=== PATIENT | female | born 1965 | race Caucasian/White ===

== ENCOUNTER 2021-04-17 17:41 | Emergency (ER) | payer BC, SELFPAY ==
--- NOTE | ~2021-04-17 | CT_ITS ---
EXAMINATION: CT diagnostic chest wo con DATE: 04/17/2021 19:19 INDICATION: sob chest tightness w/ SOB with exertion TECHNIQUE: Computed tomography (CT) of the chest was performed without intravenous contrast. Addition al 3D reconstructions utilizing coronal maximum intensity projection (MIP) were performed. Automated exposure control and iterative reconstruction technique were employed. The dose-length product was 19 0.14 mGy-cm. COMPARISON: None FINDINGS: Small bilateral posterior layering pleural effusions. There are groundglass opacities with dependent predominance in the bilateral lower lobes and to lesser degree the lingula and right middle lobe whic h could represent atelectasis, mild pulmonary edema or less likely pneumonia. Calcified nodule at the lingula along with calcified mediastinal and bilateral hilar lymph nodes nodes consistent with old g ranulomatous disease. Heart size is normal but with moderate-sized pericardial effusion. Thoracic aor ta is normal in caliber. Mild left axillary lymphadenopathy. No pathologically enlarged mediastinal o r hilar lymphadenopathy. Diffuse body wall edema. Peripherally calcified bilateral breast implants. L arge amount of stool at high attenuation material within the visualized colon. Dystrophic calcificati on in the soft tissues surrounding the right T1-T2 facet joint where there is severe osteoarthritis. IMPRESSION: 1. Moderate-sized pericardial effusion. 2. Small bilateral pleural effusions with dependent groundglass opacities in the bilateral lower lobe s and to lesser degree right middle lobe and lingula most likely mild pulmonary edema with differenti al including atelectasis or pneumonia. 3. Diffuse mild body wall edema. 4. Nonspecific mild left axillary lymphadenopathy. Reviewed, dictated and finalized at location [facility] IMPRESSION: 1. Moderate-sized pericardial effusion. 2. Small bilateral pleural effusions with dependent groundglass opacities in th e bilateral lower lobes and to lesser degree right middle lobe and lingula most likely mild pulmonary edema with differential including atelectasis or pneumon ia. 3. Diffuse mild body wall edema. 4. Nonspecific mild left axillary lymphadenopathy.
--- NOTE | 2021-04-17 18:12 | ECG_ITS ---
Measurements Intervals [place] Rate: 90 P: 22 WV: 150 QRS: 12 QRSD: 64 T: 20 QT: 351 QTc: 432 Interpretive Statements SINUS RHYTHM LOW QRS VOLTAGE IN PRECORDIAL LEADS CANNOT RULE OUT SEPTAL INFARCT, AGE INDETERMINATE BORDERLINE ST-T WAVE ABNORMALITY- ANT/INF LEADS BASELINE ARTIFACT- I, II, III, AVR, AVL, AVF, V1-V6 ABNORMAL ECG Electronically Signed On 04-18-2021 7:50:57 SAW SUPERINTENDENT by Jonathon Salmon D.O.
[2021-04-17 18:21] VITALS: BP 155/94; PULSE 95; RESP 20; TEMP 36.6; O2SAT 100
[2021-04-17 18:28] VITALS: O2SAT 99
[2021-04-17 18:56] LABS: Basophils Absolute Auto 0.03 K/mm3 (0.00-0.10); Basophils Percent Auto 0.3 % (0.0-1.0); Eosinophils Absolute Auto 0.25 K/mm3 (0.02-0.50); Eosinophils Percent Auto 2.9 % (1.0-6.0); Hematocrit 25.1 % (35.0-49.0); Hemoglobin 7.7 g/dL (12.0-15.0); Immature Granulocyte Absolute 0.04 K/mm3 (0.00-0.00); Immature Granulocyte Percent A 0.5 % (0.0-0.0); Lymphocytes Absolute Auto 1.45 K/mm3 (1.10-4.50); Lymphocytes Percent Auto 16.8 % (18.0-42.0); Mean Corpuscular HGB Conc 30.7 g/dL (32.0-36.0); Mean Corpuscular Hemoglobin 23.2 pg (27.0-31.0); Mean Corpuscular Volume 75.6 fL (78.0-102.0); Monocytes Absolute Auto 0.71 K/mm3 (0.10-0.90); Monocytes Percent Auto 8.2 % (2.0-11.0); Neutrophils Absolute Auto 6.1 K/mm3 (1.7-7.2); Neutrophils Percent Auto 71.3 % (50.0-70.0); Platelet Count Result 376 K/mm3 (150-420); Red Blood Count 3.32 M/mm3 (4.20-5.40); Red Cell Distribution Width 20.2 % (11.6-14.4); White Blood Count 8.6 K/mm3 (4.8-10.8)
[2021-04-17] MEDS: ALBUTEROL SULFATE (*SP) INHALER 2 PUFF INHALATION (19:01)
[2021-04-17] MEDS: UMECLIDINIUM BROMIDE 62.5 MCG ELLIPTA 1 PUFF INHALATION (19:02)
[2021-04-17 19:13] LABS: Alanine Aminotransferase 58 U/L (14-59); Albumin Level 2.5 g/dL (3.4-5.0); Alkaline Phosphatase 76 U/L (46-116); Anion Gap 10 mmol/L (8-16); Aspartate Amino Transferase 64 U/L (15-37); Bilirubin,Total 0.3 mg/dL (0.00-1.00); Blood Urea Nitrogen 18 mg/dL (7-18); Calcium 7.9 mg/dL (8.5-10.1); Carbon Dioxide 27 mmol/L (21-32); Chloride 98 mmol/L (98-108); Estimated CRCL calculation 45 ml/min; Estimated Glomerular Filt Rate 60; Glucose 83 mg/dL (70-99); Osmolality Calculated 280 mOsm/kg (285-295); Potassium 3.3 mmol/L (3.5-5.1); Sodium 135 mmol/L (136-145); Total Protein 5.9 g/dL (6.4-8.2)
[2021-04-17 19:17] LABS: Ethanol < 3 mg/dL (0-6); Troponin I 284.2 ng/L (0.00-60.4)
[2021-04-17 19:50] LABS: Influenza A QL RT-PCR Negative (Negative); Influenza B QL RT-PCR Negative (Negative); SARS-CoV-2 RNA PCR Negative (Negative)
--- NOTE | 2021-04-17 20:45 | PC.NURSE ---
RN went into patient's room when call light was pushed. Patient appears to be frustrated and requesting to leave. RN sat down and spoke to patient in regards update on plan of care, i.e. additional blood draw, IV initiation, medications. Patient states that she does not want additional blood work, IV, or any medications. Patient states that she is requesting to sign out AMA and go home. RN educated patient on risks of leaving AMA and not staying for additional treatment. RN educated patient on troponin enzyme and what it indicates in regards to your heart. patient verbalized understanding and states dying would not be the worst thing in the world . Patient states that she would like to go home to eat and get a good nights rest and then follow up with primary care doctor in the morning. Patient's mother in room at time of discussion. Patient denies additional questions or concerns at this time. RN updated MD on patient wanting to leave.
--- NOTE | 2021-04-17 20:55 | PC.NURSE ---
MD in room at this time having discussion with patient and mother in regards to patient wanting to sign out AMA.
--- NOTE | 2021-04-17 20:55 | PC.NURSE ---
Patient took all cardiac leads, BP cuff, and SPO2 monitor off at this time
--- NOTE | 2021-04-17 20:58 | ED.SOB ---
HPI - SOB/Dyspnea General Chief Complaint: Shortness of Breath/Dyspnea Stated Complaint: AMB Time Seen by Provider: 04/17/21 17:45 Source: patient, family and RN notes reviewed Mode of arrival: ambulatory Limitations: no limitations History of Present Illness MD elicited complaint: shortness of breath, cough and chest pain Pertinent past history: COPD Onset (ago): day(s) (2) Context: occurred during exertion Timing: constant Severity: moderate Exacerbating factors: lying flat and exertion Relieving factors: rest and bronchodilators Known history of: COPD Associated symptoms: chest pain, cough and wheezing Treatment prior to arrival: none Related Data Home Medications Medication Instructions Recorded Confirmed Probiotic 3,000 mmu cells PO DAILY 04/17/21 04/18/21 amlodipine 2.5 mg PO DAILY 04/17/21 04/18/21 aspirin-dipyridamole 1 cap PO DAILY 04/17/21 04/18/21 baclofen 10 mg PO DAILY 04/17/21 04/18/21 clonazepam 0.5 mg PO DAILY 04/17/21 04/18/21 coQ10 (ubiquinol) 100 mg PO DAILY 04/17/21 04/18/21 famotidine [Pepcid] 20 mg PO BID 04/17/21 04/18/21 pantoprazole 20 mg PO QAM 04/17/21 04/18/21 psyllium husk [Metamucil] 0.4 g PO HS 04/17/21 04/18/21 sildenafil (pulm.hypertension) 20 mg PO TID 04/17/21 04/18/21 Allergies Allergy/AdvReac Type Severity Reaction Status Date / Time methotrexate Allergy Unknown Verified 04/17/21 18:36 Review of Systems Review of Systems: All systems reviewed & are unremarkable except as noted in HPI and below PMFSH Past Medical History Medical History Anemia Hypokalemia Pulmonary hypertension Scleroderma Surgical History Surgical History H/O breast implant Family History Family History Father Smoker Mother Smoker Social History Social History Smoking status: Former smoker Tobacco type: cigarettes Second hand tobacco smoke exposure: No Alcohol intake: never Substance use type: marijuana Last use: 04/15/21 Spiritual care concerns: No Exam Const: General: alert and ill appearing Nutritional Appearance: thin Orientation/consciousness: patient oriented x3 HENMT: Head: normal to inspection Ears: external ears normal and TM's normal bilaterally General nose exam: Normal external nose present and Normal nares present Mouth: Yes moist mucous membranes Eyes: Conjunctivae: conjunctivae normal Pupils: Equal, round and reactive pupils present EOM: EOMs intact bilaterally Neck: Neck: normal visual inspection Chest: Chest palpation & inspection: normal inspection of the chest Resp: Effort & Inspection: uses accessory muscles Auscultation: crackles, rales, rhonchi and wheezes Cardio: Rate: regular rate Rhythm: regular rhythm GI: GI Palp: Yes Soft to palpation and No Tenderness to palpation present (GI) Auscultation: normal bowel sounds : General: Yes bladder normal to palpation and Yes no CVA tenderness Back/Spine/Pelvis: Back: no CVA tenderness Skin: General skin exam: normal color Neuro: General: patient oriented x3, moves all extremities, no meningeal signs, no focal motor deficits and CN's II-XI intact bilaterally Extrem: General: normal to inspection and no pedal edema Psych: Mental Status: mental status grossly normal Affect: normal affect Thought content: Yes Normal thought content present Course Course Emergency Course: Pt was mildly improved in the ED Reevaluation(s) Reevaluation #1: pt had less chest pain and SOB Date: 04/17/21 Time: 18:43 Vital Signs Vital signs: Vital Signs Temperature 36.6 C 04/17/21 18:21 Pulse Rate 95 04/17/21 18:21 Respiratory Rate 20 04/17/21 18:21 Blood Pressure 155/94 H 04/17/21 18:21 Pulse Oximetry 100 04/17/21 18:21 Temperature 36.6 C 04/17/21 18:21 Pulse
== END 2021-04-17 21:09 | disposition left against medical advice (07) ==
PROVIDERS: Emergency Provider Emergency Medicine; PCP Internal Medicine
DX: J18.8 Other pneumonia, unspecified organism (principal); I21.4 Non-ST elevation (NSTEMI) myocardial infarction; J81.1 Chronic pulmonary edema; J44.9 Chronic obstructive pulmonary disease, unspecified; Z79.899 Other long term (current) drug therapy; Z87.891 Personal history of nicotine dependence; Z20.822 Contact with and (suspected) exposure to COVID-19
CPT/HCPCS: 36415; 36600; 71250; 80053; 80307; 82805; 84484; 85025; 87081; 87502; 87880; 93005; 99283; 99284; A9270; C9803; U0003; U0005

== ENCOUNTER 2021-04-17 23:58 | Inpatient (IN) | payer BC, SELFPAY ==
[2021-04-18] VITALS (13 sets, daily range): BP systolic 108–166; BP diastolic 78–95; PULSE 74–99; RESP 16–20; TEMP 36.4–37.4; O2SAT 91–100; BMI 18.3
--- NOTE | 2021-04-18 00:05 | ECG_ITS ---
Measurements Intervals [place] Rate: 93 P: 24 MT: 155 QRS: 24 QRSD: 70 T: 16 QT: 346 QTc: 431 Interpretive Statements SINUS RHYTHM FREQUENT VENTRICULAR PREMATURE COMPLEXES BORDERLINE R WAVE PROGRESSION, ANTERIOR LEADS BORDERLINE T WAVE ABNORMALITY- ANTERIOR LEADS ABNORMAL ECG Electronically Signed On 04-18-2021 6:21:08 WIRELESS ARCHITECT by Jonathon Salmon D.O.
[2021-04-18 00:35] LABS: Basophils Absolute Auto 0.03 K/mm3 (0.00-0.10); Basophils Percent Auto 0.4 % (0.0-1.0); Eosinophils Absolute Auto 0.24 K/mm3 (0.02-0.50); Eosinophils Percent Auto 3.1 % (1.0-6.0); Hematocrit 25.3 % (35.0-49.0); Hemoglobin 7.7 g/dL (12.0-15.0); Immature Granulocyte Absolute 0.02 K/mm3 (0.00-0.00); Immature Granulocyte Percent A 0.3 % (0.0-0.0); Lymphocytes Absolute Auto 1.47 K/mm3 (1.10-4.50); Lymphocytes Percent Auto 18.8 % (18.0-42.0); Mean Corpuscular HGB Conc 30.4 g/dL (32.0-36.0); Mean Corpuscular Hemoglobin 23.1 pg (27.0-31.0); Mean Platelet Volume 9.3 fl (9.2-11.8); Monocytes Absolute Auto 0.63 K/mm3 (0.10-0.90); Neutrophils Absolute Auto 5.4 K/mm3 (1.7-7.2); Neutrophils Percent Auto 69.4 % (50.0-70.0); Platelet Count Result 351 K/mm3 (150-420); Red Blood Count 3.33 M/mm3 (4.20-5.40); Red Cell Distribution Width 20.5 % (11.6-14.4); White Blood Count 7.8 K/mm3 (4.8-10.8)
[2021-04-18 00:53] LABS: Alanine Aminotransferase 60 U/L (14-59); Albumin Level 2.5 g/dL (3.4-5.0); Alkaline Phosphatase 71 U/L (46-116); Anion Gap 8 mmol/L (8-16); Aspartate Amino Transferase 60 U/L (15-37); Bilirubin,Total 0.3 mg/dL (0.00-1.00); Blood Urea Nitrogen 17 mg/dL (7-18); Calcium 7.8 mg/dL (8.5-10.1); Carbon Dioxide 28 mmol/L (21-32); Chloride 100 mmol/L (98-108); Estimated CRCL calculation 45 ml/min; Estimated Glomerular Filt Rate 60; Glucose 83 mg/dL (70-99); Osmolality Calculated 282 mOsm/kg (285-295); Potassium 3.3 mmol/L (3.5-5.1); Sodium 136 mmol/L (136-145); Total Protein 5.8 g/dL (6.4-8.2)
[2021-04-18 00:54] LABS: Troponin I 284.2 ng/L (0.00-60.4)
[2021-04-18] MEDS: ALBUTEROL SULFATE (*SP) INHALER 2 PUFF INHALATION (01:10)
--- NOTE | 2021-04-18 02:55 | PC.NURSE ---
Pt to the floor by wheelchair; Pt was admitted with SOB and chest pain. Troponin was 285.6. Pt is alert and oriented x4 and requires assist with standing or using the bathroom.
[2021-04-18] MEDS: IBUPROFEN 600 MG TABLET PO (04:45)
[2021-04-18] MEDS: BACLOFEN 10 MG TABLET PO ×2 (04:49→08:59)
--- NOTE | 2021-04-18 05:00 | PC.NURSE ---
Pt given morphine 2 mg IVP to relieve c/o back, hands, feet and knee pain.
[2021-04-18] MEDS: MORPHINE SULFATE (*CRX) 2 MG/ML INJ IV PUSH ×2 (05:01→20:49)
--- NOTE | 2021-04-18 06:30 | PC.NURSE ---
Pt states that the morphine has relieved her pain and now rates her pain as a 3 on a 1-10 pain scale.
[2021-04-18] MEDS: traMADol HCL (*CRX) 50 MG TABLET PO ×2 (07:47→19:25)
--- NOTE | 2021-04-18 07:58 | PC.NURSE ---
Pt given baclofan 10 mg and ibuprofen 600 mg for c/o pain.
[2021-04-18] MEDS: UMECLIDINIUM BROMIDE 62.5 MCG ELLIPTA 1 PUFF INHALATION (08:55)
[2021-04-18] MEDS: SACCHAROMYCES BOULARDII 250 MG CAPSULE PO ×2 (08:56→18:07)
[2021-04-18] MEDS: SILDENAFIL CITRATE 20 MG TABLET PO ×3 (08:56→17:06)
[2021-04-18] MEDS: predniSONE 2.5 MG TABLET 7.5 MG PO (08:56)
[2021-04-18] MEDS: amLODIPine BESYLATE 2.5 MG TABLET PO (08:56)
[2021-04-18] MEDS: clonazePAM (*CRX) 0.5 MG TABLET PO (08:57)
[2021-04-18] MEDS: CALCIUM CARBONATE (TUMS) 500 MG (200 MG ELEMENTAL) PO ×2 (08:57→17:07)
[2021-04-18] MEDS: PANTOPRAZOLE SOD SESQUIHYDRATE 20 MG TAB PO (08:58)
[2021-04-18] MEDS: POTASSIUM CHLORIDE 20 MEQ TABLET PO (08:58)
[2021-04-18] MEDS: FAMOTIDINE 20 MG TABLET PO ×2 (08:58→17:07)
[2021-04-18] MEDS: ENOXAPARIN 60 MG/0.6 ML SYRINGE 50 MG SUB-Q (09:05)
[2021-04-18 09:18] LABS: Troponin I 318.4 ng/L (0.00-60.4)
--- NOTE | 2021-04-18 13:00 | ECHO_ITS ---
Patient Info Name: Sherin Parrish Age: 56 years : 1965 Gender: Female Ht: 65 in Wt: 110 lbs BSA: 1.50 m2 HR: 88 bpm BP: 146 / 86 mmHg Technical Quality: Good Exam Date: 04/18/2021 1:52 PM Exam Location: [facility] Patient Status: Inpatient Admit Date: 04/18/2021 Staff Ordering Physician: Jaime Newberry Space Engineer: Erika Samson Attending Provider: Joanne Molina MD Referring Physician: Coni SALCEDO; Exam Type: CA echo doppler color flow Study Info Indications R07.9 - Chest pain, unspecified Complete two-dimensional, color flow and Doppler transthoracic echocardiogram is performed. Summary 1. Complete two-dimensional, color flow and Doppler transthoracic echocardiogram is performed. 2. Left ventricular chamber dimension is normal. 3. Left ventricular systolic function is normal, estimated at 60-65%. 4. The left ventricular diastolic function is grade I diastolic dysfunction. 5. E/e' 11 is mildly elevated. 6. Left atrial chamber dimension is moderately enlarged. 7. There is trace aortic valve regurgitation. 8. No pulmonary hypertension, estimated pulmonary arterial systolic pressure is 31 mmHg. 9. There is large circumferential pericardial effusion. Respiratory variation on mitral and tricuspid valve flow is not assessed. Based on no diastolic collapse of right atrium or right ventricle, there is no immediate cardiac tamponade. Left Ventricle E/e' 11 is mildly elevated. Left ventricular chamber dimension is normal. Left ventricular systolic function is normal, estimated at 60-65%. The left ventricular diastolic function is grade I diastolic dysfunction. Right Ventricle Right ventricular systolic function is normal and with normal TAPSE 1.9 cm.. Right ventricular chamber dimension is normal. Left Atria Left atrial chamber dimension is moderately enlarged. Right Atria Right atrial chamber dimension is normal. Aortic Valve The aortic valve is trileaflet. There is no aortic valve stenosis. There is trace aortic valve regurgitation. Pulmonic Valve There is no pulmonic regurgitation. Mitral Valve There is no mitral valve stenosis. There is no mitral valve regurgitation. Tricuspid Valve There is no tricuspid valve regurgitation. No pulmonary hypertension, estimated pulmonary arterial systolic pressure is 31 mmHg. Pericardium/Pleural There is large circumferential pericardial effusion. Respiratory variation on mitral and tricuspid valve flow is not assessed. Based on no diastolic collapse of right atrium or right ventricle, there is no immediate cardiac tamponade. Inferior Vena Cava Normal inferior vena cava with >50% collapse upon inspiration consistent with normal right atrial pressure, 5 mmHg. Aorta The aortic root size at the sinus of Valsalva is normal. Left Ventricular Outflow Tract Name Value Normal LVOT 2D LVOT Diameter 1.8 cm LVOT Doppler LVOT Peak Velocity 118 cm/s LVOT Peak Gradient 6 mmHg LVOT Mean Gradient 4 mmHg LVOT VTI 23 cm
--- NOTE | 2021-04-18 13:54 | PM.IMHP ---
H&P: HPI History of Present Illness Date/Time: 04/18/21 13:54 Sherin Parrish is a 56 year old female who initially came to the ER with CP and SOB but left AMA. She returned for the same and agreed to be admitted as an inpatient for further workup treatment. Pt states that her SOB/CP was going on for about 2-3 weeks prior to initially coming to the ER then AMA. She did return later that evening and was admitted for her Scleroderma related SOB/CP. Pt states she was living in [place] when she started noticing a decrease in function. She then moved back in with her parents in [place]. She states that they are heavy smokers of cigarettes and cigars. Pt states that this environment is stressful. She is going to have a better living arrangement in the first week of April in a home on her folks property. She also states that her skin around her breast implants has become worse to the point her breast implants are causing pain in her chest wall to the point she is very tender and not even able to go to have a massage as she is unable to lay prone on the table. Today the Pt states that her CP and SOB has improved. Her pain was a 6/10 and now better than this. The pain stayed mid sternum and did not radiate anywhere and was intermittent. <TRUONG Soto - Last Filed: 04/18/21 15:34> Chief Complaint: SOB/CP <TRUONG Soto - Last Filed: 04/18/21 15:34> Review of Systems Review of Systems: All systems reviewed & are unremarkable except as noted in HPI and below <TRUONG Soto - Last Filed: 04/18/21 15:34> [facility] Past Medical History Medical History: Medical History Anemia Hypokalemia Scleroderma <TRUONG Soto - Last Filed: 04/18/21 15:34> Surgical History Surgical History: Surgical History (Updated 04/18/21 @ 14:52 by TRUONG Soto) H/O breast implant <TRUONG Soto - Last Filed: 04/18/21 15:34> Family History Family History: Family History (Updated 04/18/21 @ 14:51 by TRUONG Soto) Father Smoker Mother Smoker <TRUONG Soto - Last Filed: 04/18/21 15:34> Social History Social History: Social History Smoking status: Former smoker Tobacco type: cigarettes Second hand tobacco smoke exposure: No Alcohol intake: never Substance use type: marijuana Last use: 04/15/21 Spiritual care concerns: No <TRUONG Soto - Last Filed: 04/18/21 15:34> Meds Home Medications and Allergies Home medications: Home Medications Medication Instructions Recorded Confirmed Type albuterol sulfate 2 puff INHALATION QID #8.5 g 04/17/21 04/18/21 Rx amlodipine 2.5 mg PO DAILY 04/17/21 04/18/21 History aspirin-dipyridamole [Aggrenox] 1 cap PO DAILY 04/17/21 04/18/21 History azithromycin [Zithromax TRI-JUAN] 500 mg PO DAILY 5 Days #5 tablet 04/17/21 04/18/21 Rx baclofen 10 mg PO DAILY 04/17/21 04/18/21 History calcium carbonate [Tums] 500 mg PO BID #30 tablet 04/17/21 04/18/21 Rx cephalexin [Keflex] 750 mg PO Q12H #14 cap 04/17/21 04/18/21 Rx clonazepam 0.5 mg PO DAILY 04/17/21 04/18/21 History coQ10 (ubiquinol) 100 mg PO DAILY 04/17/21 04/18/21 History famotidine [Pepcid] 20 mg PO BID 04/17/21 04/18/21 History hydrocodone-acetaminophen 1 tablet PO Q6H PRN 04/17/21 04/18/21 History lactobacillus combination no.4 3,000 mmu cells PO DAILY 04/17/21 04/18/21 History [Probiotic] pantoprazole 20 mg PO QAM 04/17/21 04/18/21 History potassium chloride 20 meq PO DAILY #20 tablet 04/17/21 04/18/21 Rx prednisone 7.5 mg PO DAILY 04/17/21 04/18/21 History psyllium husk [Metamucil] 0.4 g PO HS 04/17/21 04/18/21 History sildenafil (pulm.hypertension) 20 mg PO TID 04/17/21 04/18/21 History tiotropium bromide [Spiriva 2 puff INHALATION DAILY #4 g 04/17/21 04/18/21 Rx Respimat] tramadol 12.5 mg PO QID PRN 04/17/2104/18
[2021-04-18] MEDS: ASPIRIN 81 MG ENTERIC TABLET PO (14:05)
[2021-04-18 16:56] LABS: Ferritin 14 ng/mL (8-252); Iron 13 ug/dL (50-170); Percent Iron Saturation 4 % (12-57)
[2021-04-18 16:59] LABS: Free T4 Free Thyroxine Reflex 1.14 ng/dL (0.76-1.46); Thyroid Stimulating Hormone Reflex 10.64 u/IU/mL (0.36-3.74)
--- NOTE | 2021-04-18 19:47 | PC.NURSE ---
Pt ambulated from the chair and down the hallway with standby assist, walker, and gait belt. Pt performed ambulation well and is in pleasant mood. Pt was then brought back to bed after ambulation and has her call light within reach.
[2021-04-19] VITALS (9 sets, daily range): BP systolic 138–167; BP diastolic 79–99; PULSE 83–104; RESP 14–18; TEMP 36.4–37.4; O2SAT 94–98
[2021-04-19] MEDS: MORPHINE SULFATE (*CRX) 2 MG/ML INJ IV PUSH ×3 (02:43→18:21)
[2021-04-19] MEDS: traMADol HCL (*CRX) 50 MG TABLET PO ×2 (03:28→21:15)
[2021-04-19] MEDS: SILDENAFIL CITRATE 20 MG TABLET PO ×3 (08:52→18:06)
[2021-04-19] MEDS: SACCHAROMYCES BOULARDII 250 MG CAPSULE PO ×2 (08:53→18:05)
[2021-04-19] MEDS: UMECLIDINIUM BROMIDE 62.5 MCG ELLIPTA 1 PUFF INHALATION (08:53)
[2021-04-19] MEDS: PANTOPRAZOLE SOD SESQUIHYDRATE 20 MG TAB PO (08:53)
[2021-04-19] MEDS: FAMOTIDINE 20 MG TABLET PO ×2 (08:54→18:05)
[2021-04-19] MEDS: CALCIUM CARBONATE (TUMS) 500 MG (200 MG ELEMENTAL) PO ×2 (08:54→18:05)
[2021-04-19] MEDS: clonazePAM (*CRX) 0.5 MG TABLET PO (08:54)
[2021-04-19] MEDS: BACLOFEN 10 MG TABLET PO (08:54)
[2021-04-19] MEDS: ASPIRIN 81 MG ENTERIC TABLET PO (08:54)
[2021-04-19] MEDS: lisinopriL 5 MG TABLET PO (08:54)
[2021-04-19] MEDS: predniSONE 10 MG TABLET PO (08:54)
[2021-04-19] MEDS: POTASSIUM CHLORIDE 20 MEQ TABLET PO (08:54)
[2021-04-19] MEDS: amLODIPine BESYLATE 2.5 MG TABLET PO (08:55)
[2021-04-19] MEDS: BENZOCAINE/MENTHOL (*BKC) LOZENGE 1 LOZENGE PO (09:13)
[2021-04-19 10:40] LABS: Hematocrit 25.1 % (35.0-49.0); Hemoglobin 7.7 g/dL (12.0-15.0); Mean Corpuscular HGB Conc 30.7 g/dL (32.0-36.0); Mean Corpuscular Volume 74.9 fL (78.0-102.0); Mean Platelet Volume 9.4 fl (9.2-11.8); Platelet Count Result 362 K/mm3 (150-420); Red Blood Count 3.35 M/mm3 (4.20-5.40); White Blood Count 8.9 K/mm3 (4.8-10.8)
[2021-04-19 10:58] LABS: Alanine Aminotransferase 52 U/L (14-59); Albumin Level 2.5 g/dL (3.4-5.0); Alkaline Phosphatase 65 U/L (46-116); Anion Gap 6 mmol/L (8-16); Aspartate Amino Transferase 49 U/L (15-37); Bilirubin,Total 0.4 mg/dL (0.00-1.00); Blood Urea Nitrogen 14 mg/dL (7-18); Calcium 8.2 mg/dL (8.5-10.1); Carbon Dioxide 29 mmol/L (21-32); Chloride 101 mmol/L (98-108); Estimated CRCL calculation 52 ml/min; Estimated Glomerular Filt Rate > 60; Glucose 81 mg/dL (70-99); Osmolality Calculated 281 mOsm/kg (285-295); Potassium 3.6 mmol/L (3.5-5.1); Sodium 136 mmol/L (136-145); Total Protein 6.1 g/dL (6.4-8.2)
[2021-04-19] MEDS: FUROSEMIDE INJ 40 MG/4 ML VIAL IV PUSH ×2 (11:04→18:05)
[2021-04-19 11:55] LABS: Troponin I 481.2 ng/L (0.00-60.4)
[2021-04-19] MEDS: FERROUS SULFATE 324 MG TABLET PO (13:06)
--- NOTE | 2021-04-19 14:12 | PM.IMPN ---
Progress Note: A&P Assessment and Plan (1) NSTEMI (non-ST elevated myocardial infarction): Code(s): I21.4 - Non-ST elevation (NSTEMI) myocardial infarction <TRUONG Soto - Last Filed: 04/19/21 14:39> Status: Acute <Jaime ThomasTRUONG Monet - Last Filed: 04/19/21 14:39> Assessment and Plan: Attempts were made in the ER to transfer this Pt to a higher level of care given her Scleroderma, NSTEMI. There is reported no rooms available. CP has all but resolved with intermittent short periods of CP. Pt does not complain of SOB at this time. Telemetry shows SN with occasional PVCs. Will attempt again to have this Pt transferred for a cardiac cath at a higher level of care facility. 04/19/2021 Troponin increased to 481.2, Pt is accepted at [facility] however she is on a wait list, she was not placed on a wait list at [facility] because she is not and established patient at any of their facilities, [facility] is to call back to get a report for potential acceptance. Pt CP has improved and now has CP with deep inspiration only. Echocardiogram: Summary 1. Complete two-dimensional, color flow and Doppler transthoracic echocardiogram is performed. 2. Left ventricular chamber dimension is normal. 3. Left ventricular systolic function is normal, estimated at 60-65%. 4. The left ventricular diastolic function is grade I diastolic dysfunction. 5. E/e' 11 is mildly elevated. 6. Left atrial chamber dimension is moderately enlarged. 7. There is trace aortic valve regurgitation. 8. No pulmonary hypertension, estimated pulmonary arterial systolic pressure is 31 mmHg. 9. There is large circumferential pericardial effusion. Respiratory variation on mitral and tricuspid valve flow is not assessed. Based on no diastolic collapse of right atrium or right ventricle, there is no immediate cardiac tamponade. <TRUONG Soto - Last Filed: 04/19/21 14:39> (2) Shortness of breath: Code(s): R06.02 - Shortness of breath <TRUONG Soto - Last Filed: 04/19/21 14:39> Status: Acute <TRUONG Soto - Last Filed: 04/19/21 14:39> Assessment and Plan: Chart states she is on 2 L NC, she is without NC when seen in her room with SpO2 of mid upper 90s, no complaints of SOB at this time. Rhonchi throughout the posterior without productive cough 04/19/2021 Pt states her breathing is fine and she is no longer having SOB <Jaime Newberry APN-C - Last Filed: 04/19/21 14:39> (3) Scleroderma: Code(s): M34.9 - Systemic sclerosis, unspecified <Jaime Newberry APN-C - Last Filed: 04/19/21 14:39> Status: Acute <Jaime Newberry APN-C - Last Filed: 04/19/21 14:39> Assessment and Plan: Likely cause for her SOB/CP, increased steroids to 10 mg, Pt is currently on Sildenafil for pulmonary hypertension, initial diagnosis was , she did have Stem Cell transplant in 2018 and states this did well for her. 04/19/2021 continue with transfer to higher level of care pending. <Jaime Newberry APN-C - Last Filed: 04/19/21 14:39> (4) Anemia: Code(s): D64.9 - Anemia, unspecified <Jaime Newberry APN-C - Last Filed: 04/19/21 14:39> Status: Acute <Jaime Newberry APN-C - Last Filed: 04/19/21 14:39> Assessment and Plan: Will run lab Anemia lab work up, MCV is a little low at 76, Pt states she first was told about anemia abotu 2 months ago, H/H 7.7/25.3 will monitor and transfuse when below 7 Hgb. 04/19/2021 H/H 7.7/25.1 stable at this time, Ferrous Sulfate started BID <Jaime Newberry APN-C - Last Filed: 04/19/21 14:39> (5) Hypokalemia: Code(s): E87.6 - Hypokalemia <Jaime Newberry APN-C - Last Filed: 04/19/21 14:39> Status: Acute <Jaime Newberry APN-C - Last Filed: 04/19/21 14:39> Assessment and Plan: K 3.3 and given supplements 04/19/2021 K 3.6 today <TRUONG Soto - [place]
--- NOTE | 2021-04-19 17:57 | PC.NURSE ---
Called transfer center at [facility]. Spoke with Lovely who stated we are still on list awaiting a bed.
--- NOTE | 2021-04-19 21:50 | PC.NURSE ---
pt expresses that she would like to go home tomorrow, will pass along to night nurse to let methods engineer know in the morning
[2021-04-20] VITALS (7 sets, daily range): BP systolic 135–159; BP diastolic 75–87; PULSE 64–115; RESP 14–20; TEMP 36.5–37.1; O2SAT 92–98
[2021-04-20] MEDS: MORPHINE SULFATE (*CRX) 2 MG/ML INJ IV PUSH ×2 (03:11→09:59)
[2021-04-20 05:17] LABS: Hematocrit 25.9 % (35.0-49.0); Hemoglobin 7.8 g/dL (12.0-15.0); Mean Corpuscular HGB Conc 30.1 g/dL (32.0-36.0); Mean Corpuscular Hemoglobin 22.5 pg (27.0-31.0); Mean Corpuscular Volume 74.6 fL (78.0-102.0); Mean Platelet Volume 9.1 fl (9.2-11.8); Platelet Count Result 399 K/mm3 (150-420); Red Blood Count 3.47 M/mm3 (4.20-5.40); Red Cell Distribution Width 19.9 % (11.6-14.4); White Blood Count 9.2 K/mm3 (4.8-10.8)
[2021-04-20] MEDS: traMADol HCL (*CRX) 50 MG TABLET PO ×3 (05:20→21:18)
[2021-04-20 05:38] LABS: Alanine Aminotransferase 53 U/L (14-59); Albumin Level 2.5 g/dL (3.4-5.0); Alkaline Phosphatase 61 U/L (46-116); Anion Gap 8 mmol/L (8-16); Aspartate Amino Transferase 48 U/L (15-37); Bilirubin,Total 0.4 mg/dL (0.00-1.00); Blood Urea Nitrogen 14 mg/dL (7-18); Calcium 8.4 mg/dL (8.5-10.1); Carbon Dioxide 30 mmol/L (21-32); Chloride 99 mmol/L (98-108); Estimated CRCL calculation 48 ml/min; Estimated Glomerular Filt Rate > 60; Glucose 81 mg/dL (70-99); Osmolality Calculated 283 mOsm/kg (285-295); Potassium 3.2 mmol/L (3.5-5.1); Sodium 137 mmol/L (136-145); Total Protein 6.1 g/dL (6.4-8.2)
[2021-04-20 05:40] LABS: Troponin I 258.6 ng/L (0.00-60.4)
--- NOTE | 2021-04-20 06:03 | PC.NURSE ---
Patient upset and angry. Verbally abusive with staff. Angry because her original nurse was unable to care for her due to emergency with another patient. Stated she wanted to know what was going on and why she couldn't have her nurse. stated she was going to leave facility today.
--- NOTE | 2021-04-20 06:10 | PC.NURSE ---
Lab called to report critical troponin of 258.6; No new orders at this time.
[2021-04-20] MEDS: ONDANSETRON INJ 4 MG/2 ML VIAL IV PUSH (07:58)
[2021-04-20] MEDS: UMECLIDINIUM BROMIDE 62.5 MCG ELLIPTA 1 PUFF INHALATION (09:53)
[2021-04-20] MEDS: SILDENAFIL CITRATE 20 MG TABLET PO ×3 (09:54→17:35)
[2021-04-20] MEDS: SACCHAROMYCES BOULARDII 250 MG CAPSULE PO ×2 (09:54→17:36)
[2021-04-20] MEDS: ENOXAPARIN 60 MG/0.6 ML SYRINGE 50 MG SUB-Q (09:54)
[2021-04-20] MEDS: POTASSIUM CHLORIDE 20 MEQ TABLET 40 MEQ PO (09:55)
[2021-04-20] MEDS: PANTOPRAZOLE SOD SESQUIHYDRATE 20 MG TAB PO (09:55)
[2021-04-20] MEDS: clonazePAM (*CRX) 0.5 MG TABLET PO (09:55)
[2021-04-20] MEDS: ASPIRIN 81 MG ENTERIC TABLET PO (09:55)
[2021-04-20] MEDS: CALCIUM CARBONATE (TUMS) 500 MG (200 MG ELEMENTAL) PO ×2 (09:55→17:35)
[2021-04-20] MEDS: BACLOFEN 10 MG TABLET PO (09:56)
[2021-04-20] MEDS: lisinopriL 5 MG TABLET PO (09:57)
[2021-04-20] MEDS: predniSONE 10 MG TABLET PO (09:57)
[2021-04-20] MEDS: FERROUS SULFATE 324 MG TABLET PO ×2 (09:57→17:35)
[2021-04-20] MEDS: FAMOTIDINE 20 MG TABLET PO ×2 (09:57→17:35)
[2021-04-20] MEDS: amLODIPine BESYLATE 2.5 MG TABLET PO (09:57)
[2021-04-20] MEDS: POTASSIUM CHLORIDE 20 MEQ TABLET PO (10:40)
[2021-04-20] MEDS: FUROSEMIDE INJ 40 MG/4 ML VIAL IV PUSH ×2 (10:41→17:35)
[2021-04-20 12:48] LABS: Transferrin 241 mg/dL (188-341)
--- NOTE | 2021-04-20 15:29 | P.PNIM_ITS ---
Progress Note: A&P Assessment and Plan (1) NSTEMI (non-ST elevated myocardial infarction): Code(s): I21.4 - Non-ST elevation (NSTEMI) myocardial infarction Status: Acute Assessment and Plan: Attempts were made in the ER to transfer this Pt to a higher level of care given her Scleroderma, NSTEMI. There is reported no rooms available. CP has all but resolved with intermittent short periods of CP. Pt does not complain of SOB at this time. Telemetry shows SN with occasional PVCs. Will attempt again to have this Pt transferred for a cardiac cath at a higher level of care facility. 04/19/2021 Troponin increased to 481.2, Pt is accepted at [facility] however she is on a wait list, she was not placed on a wait list at [facility] because she is not and established patient at any of their facilities, [facility] is to call back to get a report for potential acceptance. Pt CP has improved and now has CP with deep inspiration only. Echocardiogram: Summary 1. Complete two-dimensional, color flow and Doppler transthoracic echocardiogram is performed. 2. Left ventricular chamber dimension is normal. 3. Left ventricular systolic function is normal, estimated at 60-65%. 4. The left ventricular diastolic function is grade I diastolic dysfunction. 5. E/e' 11 is mildly elevated. 6. Left atrial chamber dimension is moderately enlarged. 7. There is trace aortic valve regurgitation. 8. No pulmonary hypertension, estimated pulmonary arterial systolic pressure is 31 mmHg. 9. There is large circumferential pericardial effusion. Respiratory variation on mitral and tricuspid valve flow is not assessed. Based on no diastolic collapse of right atrium or right ventricle, there is no immediate cardiac tamponade. 04/20/2021 No chest pain today even with deep inspiration, sill waiting for a bed to be available, Troponin decreased today (2) Shortness of breath: Code(s): R06.02 - Shortness of breath Status: Acute Assessment and Plan: Chart states she is on 2 L NC, she is without NC when seen in her room with SpO2 of mid upper 90s, no complaints of SOB at this time. Rhonchi throughout the posterior without productive cough 04/19/2021 Pt states her breathing is fine and she is no longer having SOB 04/20/2021 resolved at this time, not requiring supplemental O2 (3) Scleroderma: Code(s): M34.9 - Systemic sclerosis, unspecified Status: Acute Assessment and Plan: Likely cause for her SOB/CP, increased steroids to 10 mg, Pt is currently on Sildenafil for pulmonary hypertension, initial diagnosis was 2016-, she did have Stem Cell transplant in 2018 and states this did well for her. 04/19/2021 continue with transfer to higher level of care pending. 04/20/2021 Ensured Tramadol was scheduled as Pt was disappointed her evening does was delayed. (4) Anemia: Code(s): D64.9 - Anemia, unspecified Status: Acute Assessment and Plan: Will run lab Anemia lab work up, MCV is a little low at 76, Pt states she first was told about anemia abotu 2 months ago, H/H 7.7/25.3 will monitor and transfuse when below 7 Hgb. 04/19/2021 H/H 7.7/25.1 stable at this time, Ferrous Sulfate started BID 04/20/2021 H/H 7.8/25.9, continue to monitor and continue with Ferrous Sulfate supplement (5) Hypokalemia: Code(s): E87.6 - Hypokalemia Status: Acute Assessment and Plan: K 3.3 and given supplements 04/19/2021 K 3.6 today 04/20/2021 3.2 supplemented along with regular daily dose, continue to monitor Additional Plan I have examined this patient and agree with the physical examination, assessment and plan of TRUONG
[2021-04-21] VITALS: BP 152/81; PULSE 87; PULSE 93; RESP 16; TEMP 36.9; O2SAT 94
[2021-04-21] MEDS: MORPHINE SULFATE (*CRX) 2 MG/ML INJ IV PUSH (01:57)
[2021-04-21 04:00] VITALS: BP 159/86; PULSE 104; PULSE 90; RESP 14; TEMP 37; O2SAT 93
[2021-04-21 05:21] LABS: Hematocrit 25.6 % (35.0-49.0); Hemoglobin 7.8 g/dL (12.0-15.0); Mean Corpuscular HGB Conc 30.5 g/dL (32.0-36.0); Mean Corpuscular Hemoglobin 23.1 pg (27.0-31.0); Mean Platelet Volume 8.9 fl (9.2-11.8); Platelet Count Result 335 K/mm3 (150-420); Red Blood Count 3.37 M/mm3 (4.20-5.40); Red Cell Distribution Width 19.6 % (11.6-14.4); White Blood Count 9.8 K/mm3 (4.8-10.8)
[2021-04-21 05:36] LABS: Anion Gap 8 mmol/L (8-16); Blood Urea Nitrogen 14 mg/dL (7-18); Carbon Dioxide 29 mmol/L (21-32); Chloride 98 mmol/L (98-108); Estimated CRCL calculation 53 ml/min; Estimated Glomerular Filt Rate > 60; Glucose 78 mg/dL (70-99); Osmolality Calculated 279 mOsm/kg (285-295); Sodium 135 mmol/L (136-145)
[2021-04-21] MEDS: traMADol HCL (*CRX) 50 MG TABLET PO (06:14)
--- NOTE | 2021-04-21 06:40 | PM.IMPN ---
Progress Note: A&P Assessment and Plan (1) NSTEMI (non-ST elevated myocardial infarction): Code(s): I21.4 - Non-ST elevation (NSTEMI) myocardial infarction Status: Acute Assessment and Plan: Attempts were made in the ER to transfer this Pt to a higher level of care given her Scleroderma, NSTEMI. There is reported no rooms available. CP has all but resolved with intermittent short periods of CP. Pt does not complain of SOB at this time. Telemetry shows SN with occasional PVCs. Will attempt again to have this Pt transferred for a cardiac cath at a higher level of care facility. 04/19/2021 Troponin increased to 481.2, Pt is accepted at [facility] however she is on a wait list, she was not placed on a wait list at [facility] because she is not and established patient at any of their facilities, [facility] is to call back to get a report for potential acceptance. Pt CP has improved and now has CP with deep inspiration only. Echocardiogram: Summary 1. Complete two-dimensional, color flow and Doppler transthoracic echocardiogram is performed. 2. Left ventricular chamber dimension is normal. 3. Left ventricular systolic function is normal, estimated at 60-65%. 4. The left ventricular diastolic function is grade I diastolic dysfunction. 5. E/e' 11 is mildly elevated. 6. Left atrial chamber dimension is moderately enlarged. 7. There is trace aortic valve regurgitation. 8. No pulmonary hypertension, estimated pulmonary arterial systolic pressure is 31 mmHg. 9. There is large circumferential pericardial effusion. Respiratory variation on mitral and tricuspid valve flow is not assessed. Based on no diastolic collapse of right atrium or right ventricle, there is no immediate cardiac tamponade. 04/20/2021 No chest pain today even with deep inspiration, sill waiting for a bed to be available, Troponin decreased today (2) Shortness of breath: Code(s): R06.02 - Shortness of breath Status: Acute Assessment and Plan: Chart states she is on 2 L NC, she is without NC when seen in her room with SpO2 of mid upper 90s, no complaints of SOB at this time. Rhonchi throughout the posterior without productive cough 04/19/2021 Pt states her breathing is fine and she is no longer having SOB 04/20/2021 resolved at this time, not requiring supplemental O2 (3) Scleroderma: Code(s): M34.9 - Systemic sclerosis, unspecified Status: Acute Assessment and Plan: Likely cause for her SOB/CP, increased steroids to 10 mg, Pt is currently on Sildenafil for pulmonary hypertension, initial diagnosis was 2016-, she did have Stem Cell transplant in 2018 and states this did well for her. 04/19/2021 continue with transfer to higher level of care pending. 04/20/2021 Ensured Tramadol was scheduled as Pt was disappointed her evening does was delayed. (4) Anemia: Code(s): D64.9 - Anemia, unspecified Status: Acute Assessment and Plan: Will run lab Anemia lab work up, MCV is a little low at 76, Pt states she first was told about anemia abotu 2 months ago, H/H 7.7/25.3 will monitor and transfuse when below 7 Hgb. 04/19/2021 H/H 7.7/25.1 stable at this time, Ferrous Sulfate started BID 04/20/2021 H/H 7.8/25.9, continue to monitor and continue with Ferrous Sulfate supplement (5) Hypokalemia: Code(s): E87.6 - Hypokalemia Status: Acute Assessment and Plan: K 3.3 and given supplements 04/19/2021 K 3.6 today 04/20/2021 3.2 supplemented along with regular daily dose, continue to monitor Additional Plan I have examined this patient and agree with the physical examination, assessment and plan of TRUONG Newberry. 6-year-old female history RA, scleroderma ( with contractures of the fingers, sclerodactyly, gastric reflux, intermittent diarrhea /questionable malabsorption, on prednisone 7.5 mg daily) , Hypertension,chronic bronchitis, chronic pain presented with chest pain and shortness of breath. The
[2021-04-21 08:00] VITALS: BP 150/94; PULSE 94; RESP 16; TEMP 36.7; O2SAT 96
--- NOTE | 2021-04-21 08:25 | PC.NURSE ---
Spoke with Obdulia at [facility], bed available for patient at [facility], Bed 286. Call back [phone].
--- NOTE | 2021-04-21 08:29 | PM.TDS ---
Transfer Discharge Sum: Prov Provider Date of admission: 04/18/21 02:32 <TRUONG Soto - Last Filed: 04/21/21 08:58> Primary care physician: Dillan Gonzales, <TRUONG Soto - Last Filed: 04/21/21 08:58> Admitting clinician: Joanne Molina MD <TRUONG Soto - Last Filed: 04/21/21 08:58> Consults: 04/18/21 Care Coordination Consult Routine Comment: Reason for Consult:: Other <TRUONG Soto - Last Filed: 04/21/21 08:58> DS: Admitting Diagnosis Discharge Date 04/21/2021 <TRUONG Soto - Last Filed: 04/21/21 08:58> Admitting Diagnosis Scleroderma, NSTEMI, SOB <TRUONG Soto - Last Filed: 04/21/21 08:58> DS: Discharge Diagnosis Discharge Diagnosis (1) NSTEMI (non-ST elevated myocardial infarction): Code(s): I21.4 - Non-ST elevation (NSTEMI) myocardial infarction <TRUONG Soto - Last Filed: 04/21/21 08:58> Status: Acute <TRUONG Soto - Last Filed: 04/21/21 08:58> Assessment and Plan: Attempts were made in the ER to transfer this Pt to a higher level of care given her Scleroderma, NSTEMI. There is reported no rooms available. CP has all but resolved with intermittent short periods of CP. Pt does not complain of SOB at this time. Telemetry shows SN with occasional PVCs. Will attempt again to have this Pt transferred for a cardiac cath at a higher level of care facility. 04/19/2021 Troponin increased to 481.2, Pt is accepted at [facility] however she is on a wait list, she was not placed on a wait list at [facility] because she is not and established patient at any of their facilities, [facility] is to call back to get a report for potential acceptance. Pt CP has improved and now has CP with deep inspiration only. Echocardiogram: Summary 1. Complete two-dimensional, color flow and Doppler transthoracic echocardiogram is performed. 2. Left ventricular chamber dimension is normal. 3. Left ventricular systolic function is normal, estimated at 60-65%. 4. The left ventricular diastolic function is grade I diastolic dysfunction. 5. E/e' 11 is mildly elevated. 6. Left atrial chamber dimension is moderately enlarged. 7. There is trace aortic valve regurgitation. 8. No pulmonary hypertension, estimated pulmonary arterial systolic pressure is 31 mmHg. 9. There is large circumferential pericardial effusion. Respiratory variation on mitral and tricuspid valve flow is not assessed. Based on no diastolic collapse of right atrium or right ventricle, there is no immediate cardiac tamponade. 04/20/2021 No chest pain today even with deep inspiration, sill waiting for a bed to be available, Troponin decreased today 04/21/2021 Pt has no active pain reported this AM other than her usual pain from her Scleroderma, Pt to be transferred to [facility] to [address] [place] [address] Telemetry Unit. She is getting a little confused at times. Pulse pressures not narrowing last few BP readings 159/86 (110), 152/81 (104), 135/75 (95), 138/77 (97) with HR 104, 90, 93, 87 respectively. <TRUONG Soto - Last Filed: 04/21/21 08:58> (2) Shortness of breath: Code(s): R06.02 - Shortness of breath <TRUONG Soto - Last Filed: 04/21/21 08:58> Status: Acute <TRUONG Soto - Last Filed: 04/21/21 08:58> Assessment and Plan: Chart states she is on 2 L NC, she is without NC when seen in her room with SpO2 of mid upper 90s, no complaints of SOB at this time. Rhonchi throughout the posterior without productive cough 04/19/2021 Pt states her breathing is fine and she is no longer having SOB 04/20/2021 resolved at this time, not requiring supplemental O2 04/21/2021 This is resolved at this time. <TRUONG Soto - Last Filed: 04/21/21 08:58> (3) Scleroderma: Code(s): M34.9 - Systemic sclerosis, unspecified <Jaime Newberry, OPERATIONS VICE PRESIDENT-C - Last File
[2021-04-21] MEDS: SACCHAROMYCES BOULARDII 250 MG CAPSULE PO (09:00)
[2021-04-21] MEDS: POTASSIUM CHLORIDE 20 MEQ PACKET (FOR LIQUID) PO (09:00)
[2021-04-21] MEDS: amLODIPine BESYLATE 2.5 MG TABLET PO (09:06)
--- NOTE | 2021-04-21 09:35 | PC.NURSE ---
Report given to Cindi at [facility].
--- NOTE | 2021-04-21 09:50 | PC.NURSE ---
[facility] has no ALS rig available for transport.
--- NOTE | 2021-04-21 09:52 | PC.NURSE ---
[facility] contacted for transfer. Paging or transfer truck.
[2021-04-21] MEDS: FAMOTIDINE 20 MG TABLET PO (10:06)
[2021-04-21] MEDS: clonazePAM (*CRX) 0.5 MG TABLET PO (10:06)
[2021-04-21] MEDS: PANTOPRAZOLE SOD SESQUIHYDRATE 20 MG TAB PO (10:07)
[2021-04-21] MEDS: ASPIRIN 81 MG ENTERIC TABLET PO (10:07)
[2021-04-21] MEDS: BACLOFEN 10 MG TABLET PO (10:07)
[2021-04-21] MEDS: predniSONE 10 MG TABLET PO (10:07)
[2021-04-21] MEDS: FUROSEMIDE INJ 40 MG/4 ML VIAL IV PUSH (10:08)
[2021-04-21] MEDS: lisinopriL 5 MG TABLET PO (10:08)
[2021-04-21] MEDS: CALCIUM CARBONATE (TUMS) 500 MG (200 MG ELEMENTAL) PO (10:08)
--- NOTE | 2021-04-21 15:52 | PC.NURSE ---
Pt transfered to [facility] to Cardiac Unit. VSS , A/O x 3. Transferred via ambulance.
[2021-04-21] MEDS: UMECLIDINIUM BROMIDE 62.5 MCG ELLIPTA 1 PUFF INHALATION (15:58)
[2021-04-21] MEDS: SILDENAFIL CITRATE 20 MG TABLET PO (15:58)
== END 2021-04-21 10:30 | disposition short-term general hospital (02) | DRG 282 ==
LOC: CHSED 04-18 00:19 → CHS2ND 04-18 07:13
PROVIDERS: Nurse Practitioner Family; Admitting Provider Emergency Medicine; Emergency Provider Emergency Medicine; PCP Family Medicine; Visit Provider Emergency Medicine
DX: I21.4 Non-ST elevation (NSTEMI) myocardial infarction (principal); E87.6 Hypokalemia; D64.9 Anemia, unspecified; M34.9 Systemic sclerosis, unspecified; R06.02 Shortness of breath
CPT/HCPCS: 36415; 36600; 80048; 80053; 82728; 82805; 83540; 83550; 84439; 84443; 84466; 84484; 85025; 85027; 87040; 93005; 93306; 99285; A9270; J1650; J1940; J2270; J2405; J7512

== ENCOUNTER 2021-05-08 11:32 | Observation (INO) | payer BC, SELFPAY ==
[2021-05-08] VITALS (11 sets, daily range): BP systolic 152–177; BP diastolic 80–113; PULSE 79–112; RESP 10–26; TEMP 36.1–36.2; O2SAT 97–100
--- NOTE | ~2021-05-08 | XR_ITS ---
EXAMINATION: XR chest 1V portable DATE: 05/08/2021 12:24 INDICATION: Altered mental status. Rales. TECHNIQUE: A single frontal view of the chest was obtained on 2 radiographs. COMPARISON: Chest 2 views 03/09/2012, chest CT 04/17/2021 FINDINGS: There are airspace opacities in right mid and lower lung zones and all left lung zones with a lower lung predominance. Calcified left lung nodules and calcified bilateral hilar lymph nodes are consistent with old granulomatous disease. There are small pleural effusions. No pneumothorax. There is enlargement of the cardiac silhouette. Breast implants are noted. IMPRESSION: 1. Airspace opacities in right mid and lower lung zones and all left lung zones with a lower lung pre dominance, consistent with pneumonia. 2. Small pleural effusions. 3. Enlargement of the cardiac silhouette, likely secondary to pericardial effusion as seen on the brook or CT. Reviewed, dictated and finalized at location B. ESSOR OF PUBLIC ADMINISTRATION IMPRESSION: 1. Airspace opacities in right mid and lower lung zones and all left lung zones with a lower lung predominance, consistent with pneumonia. 2. Small pleural effusions. 3. Enlargement of the cardiac silhouette, likely secondary to pericardial effus ion as seen on the prior CT.
--- NOTE | ~2021-05-08 | CT_ITS ---
EXAMINATION: CT brain wo con EXAM DATE: 05/08/2021 13:01 INDICATION: Altered mental status pt unresponsive. TECHNIQUE: Spiral CT of the head was performed without contrast. Axial, coronal and sagittal images were reviewed. The dose-length product (DLP) for this examination was 605.33 mGy-cm. The exposure w as tailored according to patient size, and iterative reconstruction (ASIR) was used as additional dos e reduction technique. There is no prior study for comparison. FINDINGS: There is no acute intraparenchymal hemorrhage. No evidence of intraparenchymal brain mass lesion. No evidence of acute infarction. Please note that initial head CT has limited sensitivity f or small or acute infarctions. There are old bilateral small frontal parietal lobe infarctions. The re is mild periventricular and subcortical hypodensity, nonspecific but probably related to small ves nicole ischemic disease. There is mild prominence of the sulci and ventricles related to cerebral atro phy. There is intracranial carotid arteriosclerosis. There are no extra-axial collections. There is no mass effect or midline shift. The orbits are unremarkable. Soft tissue is unremarkable. The visualized sinuses and mastoid air cells are well aerated. IMPRESSION: 1. No acute intracranial findings. 2. Chronic age related findings. 3. Small bilateral frontoparietal lobe infarctions. Reviewed, dictated and finalized at location A. ING CLERK
--- NOTE | ~2021-05-08 | CT_ITS ---
EXAMINATION: CT abdomen pelvis wo con EXAM DATE: 05/09/2021 11:38 INDICATION: Unresponsive. Altered mental status. TECHNIQUE: Spiral CT of the abdomen and pelvis was performed without contrast. Axial, coronal and s agittal images of the abdomen and pelvis were reviewed. The dose-length product (DLP) for this exami nation was 528.55 mGy-cm. The exposure was tailored according to patient size (auto mA exposure cont rol), and iterative reconstruction (ASIR) was used as additional dose reduction technique. There is no prior study for comparison. FINDINGS: There is severe generalized body wall edema, anasarca, mesenteric edema which is limiting s ensitivity for detecting acute intra-abdominal processes. There is large pericardial effusion, modera te right pleural and small left pleural effusion. There is diffuse basilar groundglass airspace disea se, pneumonia and/or edema. Breast implants with capsular retraction. There is dense material in the colon, which has severe distention to the rectosigmoid colon. Cecum me asures up to 9.7 cm. The rectal vault has only mild distention. Transverse colon is tortuous, extends down into the pelvis. Could be colonic ileus or possibly rectosigmoid stricturing (there is a short segment of the rectosigmoid which is collapsed, but typically cancer has evidence of shouldering). So me stool leaking out of the rectum. No small bowel dilation suspected. Gallbladder is distended but otherwise unremarkable. There is periportal edema. Spleen and pancreas a re unremarkable on this noncontrast study. No hydronephrosis or nephrolithiasis. Mild scattered arter ial sclerosis. Forrester catheter within a collapsed bladder. Pelvic mass probably a retroverted uterus a ssuming patient has not had hysterectomy. There are no osteoblastic or osteolytic lesions identified. IMPRESSION: 1. Severely distended colon, cecum up to 9.7 cm. Favor colonic ileus over rectosigmoid obstruction. Consider baseline KUB. 2. Large pericardial effusion, moderate right and small left pleural effusions. 3. Anasarca, mesenteric and periportal edema. 4. Diffuse basilar pneumonia or edema. Reviewed, dictated and finalized at location A. STIC SENSOR OPERATOR IMPRESSION: 1. Severely distended colon, cecum up to 9.7 cm. Favor colonic ileus over rect osigmoid obstruction. Consider baseline KUB. 2. Large pericardial effusion, moderate right and small left pleural effusions . 3. Anasarca, mesenteric and periportal edema. 4. Diffuse basilar pneumonia or edema.
--- NOTE | ~2021-05-08 | XR_ITS ---
EXAMINATION: XR abdomen NG/feed tube insert INDICATION: Nasogastric tube placement TECHNIQUE: Portable AP KUB-NG at 1645 hours COMPARISON: None available FINDINGS: The nasogastric tube is in the stomach. There are airspace opacities of the visualized lung bases. Small pleural effusions are noted. There are calcified breast implants. There is partially im aged dilated large bowel. Cardiomegaly is noted. IMPRESSION: 1. Nasogastric tube in the stomach. Reviewed, dictated and finalized at location F. TAL PROJECT COORDINATOR
--- NOTE | 2021-05-08 11:40 | ECG_ITS ---
Measurements Intervals [place] Rate: 111 P: 62 OR: 138 QRS: 50 QRSD: 84 T: -74 QT: 330 QTc: 450 Interpretive Statements SINUS TACHYCARDIA FREQUENT VENTRICULAR PREMATURE COMPLEXES POSSIBLE LEFT ATRIAL ENLARGEMENT LOW QRS VOLTAGE IN LIMB LEADS BORDERLINE R WAVE PROGRESSION, ANTERIOR LEADS BORDERLINE ST-T WAVE ABNORMALITY- ANT/INF LEADS BASELINE WANDER- II, III, AVR, AVL, AVF, V1-V4 ABNORMAL ECG Electronically Signed On 05-08-2021 12:51:17 MANAGER VALUATION by Jonathon Salmon D.O.
--- NOTE | 2021-05-08 11:40 | ED.AMS ---
HPI - Altered Mental Status General Chief Complaint: Altered Mental Status <Harley Ibarra MD - Last Filed: 05/08/21:> Stated Complaint: AMBULANCE <Harley Ibarra MD - Last Filed: 05/08/21:> Time Seen by Provider: 05/08/21 11:40 <Harley Ibarra MD - Last Filed: 05/08/21:> Source: EMS <Harley Ibarra MD - Last Filed: 05/08/21> Mode of arrival: EMS <Harley Ibarra MD - Last Filed: 05/08/21:> Limitations: altered mental status <Harley Ibarra MD - Last Filed: 05/08/21> History of Present Illness HPI narrative: 56-year-old woman with history of scleroderma, recent admission with chest pain and elevated troponins, brought to the emergency department by EMS for decreased level consciousness. Patient was noted by her family) who she lives with) to be in her usual state last night. She complained of abdominal pain, was concerned about constipation and received an enema. Her mother tried to wake her at about 8 this morning and she was nonverbal, did not open her eyes, but was moving her arms intermittently. Her mother states that she has a history of a stroke. <Harley Ibarra MD - Last Filed: 05/08/21> MD complaint: altered mental status and decreased responsiveness <Harley Ibarra MD - Last Filed: 05/08/21:> Onset (ago): hour(s) <Harley Ibarra MD - Last Filed: 05/08/21:> Timing confirmed by: family member <Harley Ibarra MD - Last Filed: 05/08/21:> Severity: severe <Harley Ibarra MD - Last Filed: 05/08/21:> Consistency of symptoms: constant <Harley Ibarra MD - Last Filed: 05/08/21:> Related Data Home Medications: Home Medications Medication Instructions Recorded Confirmed Probiotic 3,000 mmu cells PO DAILY 04/17/21 05/08/21 amlodipine 2.5 mg PO DAILY 04/17/21 05/08/21 baclofen 10 mg PO DAILY 04/17/21 05/08/21 clonazepam 0.5 mg PO DAILY 04/17/21 05/08/21 coQ10 (ubiquinol) 100 mg PO DAILY 04/17/21 05/08/21 famotidine [Pepcid] 20 mg PO BID 04/17/21 05/08/21 pantoprazole 20 mg PO QAM 04/17/21 05/08/21 psyllium husk [Metamucil] 0.4 g PO HS 04/17/21 05/08/21 sildenafil (pulm.hypertension) 20 mg PO TID 04/17/21 05/08/21 Aggrenox 25 - 200 mg PO DAILY 05/08/21 05/08/21 hydrocodone-acetaminophen 7.5 - 325 mg BYMOUTH PRN PRN 05/08/21 05/08/21 ibuprofen 200 mg PO PRN PRN 05/08/21 05/08/21 prochlorperazine 10 mg PO DAILY 05/08/21 05/08/21 <Harley Ibarra MD - Last Filed: 05/08/21 21:28> Allergies/Adverse Reactions: Allergies Allergy/AdvReac Type Severity Reaction Status Date / Time methotrexate Allergy Unknown Verified 05/08/21 13:12 <Harley Ibarra MD - Last Filed: 05/08/21 21:28> Review of Systems Review of Systems: ROS unobtainable: Yes unobtainable due to mental status <Harley Ibarra MD - Last Filed: 05/08/21 21:28> [facility] Past Medical History Medical History: Medical History (Updated 05/08/21 @ 14:33 by Harley Ibarra MD) Anemia CVA (cerebral vascular accident) Hypokalemia NSTEMI (non-ST elevated myocardial infarction) Pulmonary hypertension Scleroderma <Harley Ibarra MD - Last Filed: 05/08/21 21:28> Surgical History Surgical History: Surgical History (Updated 05/08/21 @ 14:33 by Harley Ibarra MD) H/O breast implant H/O stem cell transplant <Harley Ibarra MD - Last Filed: 05/08/21 21:28> Family History Family History: Family History Father Smoker Mother Smoker <Harley Ibarra MD - Last Filed: 05/08/21 21:28> Social History Social History: Social History Smoking status: Former smoker Tobacco type: cigarettes Second hand tobacco smoke exposure: No Alcohol intake: never Substance use type: marijuana Last use: 04/15/21 Spiritual
[2021-05-08] MEDS: SODIUM CHLORIDE 0.9% IV 500 ML 999 ML IV CONT (11:57)
[2021-05-08] MEDS: NALOXONE HCL INJ 2 MG/2 ML AMP IV PUSH (11:57)
[2021-05-08] MEDS: ONDANSETRON INJ 4 MG/2 ML VIAL IV PUSH (12:18)
[2021-05-08 12:27] LABS: Basophils Absolute Auto 0.05 K/mm3 (0.00-0.10); Basophils Percent Auto 0.4 % (0.0-1.0); Eosinophils Absolute Auto 0.15 K/mm3 (0.02-0.50); Eosinophils Percent Auto 1.2 % (1.0-6.0); Hematocrit 37.6 % (35.0-49.0); Hemoglobin 11.9 g/dL (12.0-15.0); Immature Granulocyte Absolute 0.04 K/mm3 (0.00-0.00); Immature Granulocyte Percent A 0.3 % (0.0-0.0); Immature Platelet Fraction Pct 1.3 % (1.0-7.0); Lymphocytes Absolute Auto 1.64 K/mm3 (1.10-4.50); Lymphocytes Percent Auto 12.6 % (18.0-42.0); Mean Corpuscular HGB Conc 31.6 g/dL (32.0-36.0); Mean Corpuscular Hemoglobin 24.4 pg (27.0-31.0); Mean Platelet Volume 9.6 fl (9.2-11.8); Monocytes Absolute Auto 0.56 K/mm3 (0.10-0.90); Monocytes Percent Auto 4.3 % (2.0-11.0); Neutrophils Absolute Auto 10.5 K/mm3 (1.7-7.2); Neutrophils Percent Auto 81.2 % (50.0-70.0); Platelet Count Result 511 K/mm3 (150-420); Red Blood Count 4.88 M/mm3 (4.20-5.40); Red Cell Distribution Width 19.4 % (11.6-14.4)
[2021-05-08 12:29] LABS: Add Urine Microscopic? NO; Appearance Urine Clear (Clear); Bilirubin Urine Negative (Negative); Blood Urine Negative (Negative); Color Urine Light Yellow (Yellow); Glucose Urine UA Negative (Negative); Ketones Urine Negative (Negative); Leukocyte Esterase Ur Negative LEU/UL (Negative); Nitrate Urine Negative (Negative); Protein Urine Negative (Negative); Urobilinogen Urine 0.2 mg/dL (0.2-1.0)
[2021-05-08 12:34] LABS: Amphetamine Screen Urine Negative (Negative); Barbiturate Screen Urine Negative (Negative); Benzodiazepines Screen Urine Positive (Negative); Cannabinoid Screen Urine Positive (Negative); Cocaine Screen Urine Negative (Negative); Methadone Screen Urine Negative (Negative); Opiate Screen Urine Negative (Negative); Phencyclidine Screen Urine Negative (Negative)
[2021-05-08 12:38] LABS: Occult Blood Negative (Negative)
[2021-05-08 12:39] LABS: INR 1.1; Partial Thromboplastin Time 28.8 SEC (23.90-30.70); Prothrombin Time 11.4 Seconds (9.50-12.10)
[2021-05-08 12:50] LABS: Lactic Acid Reflex 0.9 mmol/L (0.4-2.0)
[2021-05-08 12:55] LABS: Alanine Aminotransferase 44 U/L (14-59); Albumin Level 2.9 g/dL (3.4-5.0); Alkaline Phosphatase 86 U/L (46-116); Anion Gap 12 mmol/L (8-16); Aspartate Amino Transferase 42 U/L (15-37); Bilirubin,Total 0.4 mg/dL (0.00-1.00); Blood Urea Nitrogen 33 mg/dL (7-18); Calcium 8.7 mg/dL (8.5-10.1); Carbon Dioxide 23 mmol/L (21-32); Chloride 97 mmol/L (98-108); Estimated Glomerular Filt Rate 37; Glucose 96 mg/dL (70-99); Osmolality Calculated 281 mOsm/kg (285-295); Potassium 4.3 mmol/L (3.5-5.1); Salicylate 1.7 mg/dL (2.8-20.0); Sodium 132 mmol/L (136-145); Thyroid Stimulating Hormone 5.89 uIU/mL (0.36-3.74); Total Protein 6.6 g/dL (6.4-8.2)
[2021-05-08 13:00] LABS: Estimated CRCL calculation 34 ml/min
[2021-05-08 13:01] LABS: Acetaminophen < 2 ug/mL (10-30); Ethanol < 3 mg/dL (0-6); Troponin I 189.5 ng/L (0.00-60.4)
--- NOTE | 2021-05-08 13:01 | PC.NURSE ---
ERP made aware of critical trop of 189.5
[2021-05-08 13:02] LABS: Influenza A QL RT-PCR Negative (Negative); Influenza B QL RT-PCR Negative (Negative); SARS-CoV-2 RNA PCR Negative (Negative)
[2021-05-08 14:18] LABS: Base Excess ABG -4.1 mmol/L (0-2); Carboxyhemoglobin 0.6 % (0-1.5); Methemoglobin ABG 0.3 % (0-1.5); Oxygen Content ABG 14.7 %vol (16.0-22.0); Oxygen Saturation ABG 89.2 % (95-97); Oxyhemoglobin 88.4 % (94-100); PCO2 ABG 33.4 mmHg (35-45); PO2 ABG 58.9 mmHg (80-90); Reduced Hemoglobin 10.7 % (0-1.5); Total Hemoglobin 11.8 g/dL (12.0-18.0)
[2021-05-08 14:19] LABS: Modified Allen's Test Unable to perform; Site Drawn LEFT RADIAL
[2021-05-08 14:21] LABS: Device ROOM AIR
[2021-05-08] MEDS: SODIUM CHLORIDE 0.9% IV 1,000 ML 210 ML IV CONT (15:43)
[2021-05-08 16:07] LABS: Troponin I 172.1 ng/L (0.00-60.4)
--- NOTE | 2021-05-08 16:08 | PC.NURSE ---
ERP made aware of critical troponin 172.1
--- NOTE | 2021-05-08 16:53 | PC.NURSE ---
Pt turned to the left. Pts mouth suctioned. Still minimal responses. IV NS infusing at 210ml/h.
--- NOTE | 2021-05-08 18:06 | PC.NURSE ---
Multiple calls made see call list.
[2021-05-08 19:39] LABS: Anion Gap 12 mmol/L (8-16); Blood Urea Nitrogen 31 mg/dL (7-18); Carbon Dioxide 21 mmol/L (21-32); Chloride 99 mmol/L (98-108); Estimated CRCL calculation 38 ml/min; Estimated Glomerular Filt Rate 44; Glucose 85 mg/dL (70-99); Osmolality Calculated 279 mOsm/kg (285-295); Potassium 4.9 mmol/L (3.5-5.1); Sodium 132 mmol/L (136-145)
[2021-05-08 19:42] LABS: Troponin I 166.8 ng/L (0.00-60.4)
--- NOTE | 2021-05-08 20:00 | PC.NURSE ---
Attempts made for transfer calls to [facility] and [facility] systems. No beds available for transfer and no wait list at this time.
--- NOTE | 2021-05-08 20:20 | PC.NURSE ---
Call made to [facility], spoke to monty Acevedo, and report given. 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
--- NOTE | 2021-05-08 22:29 | PC.NURSE ---
Pt moved and repositioned in bed to her Rt side c HOB elevated, suctioned saliva from corner of mouth, pt still unconscious, will open eyes to movement and pain.
[2021-05-09] VITALS (20 sets, daily range): BP systolic 153–182; BP diastolic 82–101; PULSE 72–998; RESP 12–20; TEMP 36.9; O2SAT 97–100
[2021-05-09] MEDS: DEXTROSE 5%/0.9% SOD CHL 1,000 ML 150 ML IV CONT ×4 (00:10→14:31)
[2021-05-09 01:15] LABS: Troponin I 158.4 ng/L (0.00-60.4)
--- NOTE | 2021-05-09 01:29 | PC.NURSE ---
Call back from [facility], updated report and info given to transfer center, they stated they will enter all info. and call when a bed is available. Pt remains unconscious, VSS at this time. HOB >45 to maintain airway status and pt is being suctioned orally prn of clear saliva.
[2021-05-09] MEDS: PANTOPRAZOLE SODIUM IV 40 MG VIAL IV PUSH ×2 (01:35→09:00)
--- NOTE | 2021-05-09 04:28 | PC.NURSE ---
Pt turned and repositioned to Lt side, heels off bed, skin intact. Pt will open eyes to pain and when turned. HOB elevated, VSS at this time.
--- NOTE | 2021-05-09 05:30 | PC.NURSE ---
Call placed to pts. mother and [facility] to discuss POC for pt. Pt remains unresponsive, comfort care being provided at present time.
[2021-05-09 05:58] LABS: Base Excess ABG -2.6 mmol/L (0-2); HCO3 ABG 21.2 mmol/L (23-29); Oxygen Content ABG 15.2 %vol (16.0-22.0); Oxygen Saturation ABG 97.4 % (95-97); Oxyhemoglobin 96.2 % (94-100); PO2 ABG 104.7 mmHg (80-90); Total Hemoglobin 11.1 g/dL (12.0-18.0); pH ABG 7.43 (7.35-7.45)
[2021-05-09 06:00] LABS: Device ROOM AIR; Modified Allen's Test Pass; Site Drawn LEFT RADIAL
[2021-05-09 06:03] LABS: Basophils Absolute Auto 0.03 K/mm3 (0.00-0.10); Basophils Percent Auto 0.3 % (0.0-1.0); Eosinophils Absolute Auto 0.08 K/mm3 (0.02-0.50); Eosinophils Percent Auto 0.8 % (1.0-6.0); Hematocrit 31.8 % (35.0-49.0); Hemoglobin 9.9 g/dL (12.0-15.0); Immature Granulocyte Absolute 0.04 K/mm3 (0.00-0.00); Immature Granulocyte Percent A 0.4 % (0.0-0.0); Lymphocytes Absolute Auto 0.94 K/mm3 (1.10-4.50); Lymphocytes Percent Auto 9.4 % (18.0-42.0); Mean Corpuscular HGB Conc 31.1 g/dL (32.0-36.0); Mean Corpuscular Hemoglobin 23.9 pg (27.0-31.0); Mean Corpuscular Volume 76.8 fL (78.0-102.0); Mean Platelet Volume 9.4 fl (9.2-11.8); Monocytes Absolute Auto 0.64 K/mm3 (0.10-0.90); Monocytes Percent Auto 6.4 % (2.0-11.0); Neutrophils Absolute Auto 8.3 K/mm3 (1.7-7.2); Neutrophils Percent Auto 82.7 % (50.0-70.0); Platelet Count Result 374 K/mm3 (150-420); Red Blood Count 4.14 M/mm3 (4.20-5.40); Red Cell Distribution Width 19.1 % (11.6-14.4)
[2021-05-09 06:17] LABS: Alanine Aminotransferase 36 U/L (14-59); Albumin Level 2.3 g/dL (3.4-5.0); Alkaline Phosphatase 73 U/L (46-116); Anion Gap 13 mmol/L (8-16); Aspartate Amino Transferase 31 U/L (15-37); Bilirubin,Total 0.3 mg/dL (0.00-1.00); Blood Urea Nitrogen 27 mg/dL (7-18); CRP 2.9 mg/dL (0.0-0.9); Calcium 7.7 mg/dL (8.5-10.1); Carbon Dioxide 20 mmol/L (21-32); Chloride 101 mmol/L (98-108); Estimated CRCL calculation 44 ml/min; Estimated Glomerular Filt Rate 52; Glucose 115 mg/dL (70-99); Lipase 12 U/L (73-393); Osmolality Calculated 284 mOsm/kg (285-295); Potassium 4.2 mmol/L (3.5-5.1); Sodium 134 mmol/L (136-145); Total Protein 5.4 g/dL (6.4-8.2)
[2021-05-09 06:19] LABS: Lactic Acid Reflex 0.5 mmol/L (0.4-2.0)
[2021-05-09 06:31] LABS: Troponin I 185.9 ng/L (0.00-60.4)
[2021-05-09] MEDS: ALBUTEROL SULFATE NEB 2.5 MG/3 ML INH INHALATION ×3 (08:17→17:56)
[2021-05-09] MEDS: methylPREDNISolone SOD SUCC 40 MG VIAL 10 MG IV PUSH (09:00)
--- NOTE | 2021-05-09 10:11 | PC.NURSE ---
0915 POA FRANCES URBINA AND MOTHER OF PT ARRIVED TO HOSPITAL TO DISCUSS ADVANCED DIRECTIVE 0930 ADVANCED DIRECTIVE FILLED OUT AND SIGNED BY DOCTOR AND DISCUSSED WITH POA COPY PLACED ON CHART AND ORIGINAL GIVEN TO POA
--- NOTE | 2021-05-09 12:42 | PC.NURSE ---
[address] WITH RN PT HAD CT OF ABD ELIN WELL PT THEN TAKEN TO FLOOR ROOM 207 NURSE MELITA RN TOOK OVER CARE OF PT AT 1140
[2021-05-09] MEDS: BUDESONIDE RESPULE NEB 0.5 MG/2 ML AMP INHALATION ×2 (12:45→18:25)
--- NOTE | 2021-05-09 14:12 | PM.IMHP ---
H&P: HPI History of Present Illness Date/Time: 05/09/21 14:12 this is a 56-year-old female that presented to emergency department decreased level of consciousness. Patient has a past medical history of anemia, CVA, hypokalemia, NSTEMI, pulmonary hypertension and scleroderm. This patient was a ER hold due to unavailable beds at [facility] patient was placed in our hospital as observation. She will possibly be transferred to a higher level care. I did speak with her mother who wishes for her to go to [place] I explained to her mother that patient will need to go to any hospital that has an available bed. Patient's mother agreed but her family member will continue to work on [employer]. Patient is completely unresponsive and appears to be groaning due to pain. CT of the head indicates small bilateral frontaloparietal lobe infarct. CT indicates Severely distended colon, cecum up to 9.7 cm. Favor colonic ileus over rectosigmoid obstruction. Consider baseline KUB. , Large pericardial effusion, moderate right and small left pleural effusions, Anasarca, mesenteric and periportal edema. Vital signs 92, 16, 99% and 175/94, WBC 10, hemoglobin 9.9, hematocrit 31.8, platelets 374, sodium 134, potassium 4.2, BUN 31, creatinine 1.27, lactic acid 0.5, [id number] EKG sinus tach with a heart rate of 111. Patient being treated for ileus, CVA, anemia. Reported by nursing staff that patient is having a black liquid bowel movement. I spoke with patient's mom her that patient will need to see a surgeon as well as a neurologist and possible GI specialist and we will attempt to get her in any hospital that has a bed available. Patient is on a call list at [facility] and [facility]. Her mother wants her to go to [place] but there is no beds available nor the wait list. There is also no beds or wait list for [facility] Patient is not stable and needs to transfer time spent 120-minute This patient needs a consult with surgery, neurology, possibly GI and a thoracentesis Observation Chief Complaint: AMS Review of Systems Review of Systems: ROS unobtainable: Yes unobtainable due to mental status [facility] Past Medical History Medical History (Updated 05/09/21 @ 15:02 by Sonda R. Wilfred, SENIOR MECHANICAL ESTIMATOR-C) Anemia CVA (cerebral vascular accident) Hypokalemia NSTEMI (non-ST elevated myocardial infarction) Pulmonary hypertension Scleroderma Surgical History Surgical History (Updated 05/08/21 @ 14:33 by Harley Ibarra MD) H/O breast implant H/O stem cell transplant Family History Family History Father Smoker Mother Smoker Social History Social History Smoking status: Former smoker Tobacco type: cigarettes Second hand tobacco smoke exposure: No Alcohol intake: never Substance use type: marijuana Last use: 04/15/21 Spiritual care concerns: No Meds Home Medications and Allergies Home Medications Medication Instructions Recorded Confirmed Type Probiotic 3,000 mmu cells PO DAILY 04/17/21 05/08/21 History Spiriva Respimat 2 puff INHALATION DAILY #4 g 04/17/21 05/08/21 Rx amlodipine 2.5 mg PO DAILY 04/17/21 05/08/21 History baclofen 10 mg PO DAILY 04/17/21 05/08/21 History clonazepam 0.5 mg PO DAILY 04/17/21 05/08/21 History coQ10 (ubiquinol) 100 mg PO DAILY 04/17/21 05/08/21 History famotidine [Pepcid] 20 mg PO BID 04/17/21 05/08/21 History pantoprazole 20 mg PO QAM 04/17/21 05/08/21 History psyllium husk [Metamucil] 0.4 g PO HS 04/17/21 05/08/21 History sildenafil (pulm.hypertension) 20 mg PO TID 04/17/21 05/08/21 History prednisone 10 mg PO DAILY #30 tablet 04/21/21 05/08/21 Rx tramadol 50 mg PO TID PRN #0 tablet 04/21/21 05/08/21 Rx Aggrenox 25 - 200 mg PO DAILY 05/08/21 05/08/21 History hydrocodone-acetaminophen 7.5 - 325 mg BYMOUTH PRN PRN 05/08/21 05/08/21 History ibuprofen 200 mg PO PRN PRN 05/08/21 05/08/21 History prochlorperazine 10 mg PO ADAMA
[2021-05-09] MEDS: HYDROmorphone HCL INJ (*CRX) 2 MG/ML VIAL 0.5 MG IV PUSH (14:40)
[2021-05-09] MEDS: MORPHINE SULFATE (*CRX) 2 MG/ML INJ 0.5 MG IV PUSH ×2 (16:24→20:32)
[2021-05-09] MEDS: METOCLOPRAMIDE HCL INJ 10 MG/2 ML VIAL 5 MG IV PUSH (18:12)
--- NOTE | 2021-05-09 21:06 | PC.NURSE ---
pt given morphine for pain, pt continues to moan, pt will open eyes a small amt but does not respond to questions, pillow between knees, dale to gravity, iv running, ng suct to int.
--- NOTE | 2021-05-09 22:02 | PC.NURSE ---
report called to [facility] rn
--- NOTE | 2021-05-09 22:11 | PC.NURSE ---
[facility] called for transfer to [facility] , NG in place 14f, dale to gravity, tele box removed, iv left in place per accepting facility, fluids d/c, pt's mother is aware of transfer and what room, [place] going to rm [id number] bed 1 at [facility]
--- NOTE | 2021-05-10 09:47 | P.DS_ITS ---
DS: Admitting Diagnosis Discharge Date 05/09/21 Admitting Diagnosis ams, pna, cva DS: Discharge Diagnosis Discharge Diagnosis (1) CVA (cerebral vascular accident): Code(s): I63.9 - Cerebral infarction, unspecified Status: Acute Assessment and Plan: * CT indicates Small bilateral frontoparietal lobe infarctions. * Patient would need to transfer to a hospital with a higher level of care and consult with neurology (2) Pneumonia: Qualifiers: Laterality: bilateral Lung location: lower lobe of lung Pneumonia type: due to unspecified organism Qualified Code(s): J18.9 - Pneumonia, unspecified organism Code(s): J18.9 - Pneumonia, unspecified organism Status: Acute Assessment and Plan: * Imaging indicates pneumonia * WBCs and lactic acid within normal limits * CRP elevated at 2.9 * Continue Zosyn * Blood culture pending (3) Acute alteration in mental status: Code(s): R41.82 - Altered mental status, unspecified Status: Acute Assessment and Plan: * Possibly secondary to CVA versus infection versus [place] * Will need to transfer for consult to neurology (4) NSTEMI (non-ST elevated myocardial infarction): Code(s): I21.4 - Non-ST elevation (NSTEMI) myocardial infarction Status: Acute Assessment and Plan: * trop 189.5>172.1>166.8>158.4>185.9 * EKG sinus tach heart rates in the 111 * Patient will need to transfer and consult cardiology (5) Pulmonary hypertension: Code(s): I27.20 - Pulmonary hypertension, unspecified Status: Acute Assessment and Plan: * Blood pressure 175/94 * Will slowly lower blood pressure due to acute CVA * Continue amlodipine once patient is no longer n.p.o. for now hydralazine with parameters * Vital signs as * Will adjust medication as needed (6) Anemia: Code(s): D64.9 - Anemia, unspecified Status: Acute Assessment and Plan: * Hemoglobin 9.9 hematocrit 38.8 baseline appears to be at7.8/25.6 * Received report that patient has dark stools * Will trend * Infuse for hemoglobin less than 6 * Type and screen ordered * Occult blood pending (7) Scleroderma: Code(s): M34.9 - Systemic sclerosis, unspecified Status: Acute (8) Ileus: Code(s): K56.7 - Ileus, unspecified Status: Acute Assessment and Plan: * CT indicates Severely distended colon, cecum up to 9.7 cm. Favor colonic ileus over rectosigmoid obstruction. * KUB pending * Patient n.p.o. with NG tube to suction. * Reglan order * Patient will need to transfer to for surgical reconsult (9) Pleural effusion: Code(s): J90 - Pleural effusion, not elsewhere classified Status: Acute Assessment and Plan: * Imaging indicated moderate right and small left pleural effusion * Will need a thoracentesis when stable DS: Summary Hospital Course Hospital Course: this is a 56-year-old female that presented to emergency depar tme with decreased level of consciousness. Patient has a past medical history of anemia, CVA, hypokalemia, NSTEMI, pulmonary hypertension and scleroderm. This patient was a ER hold due to unavailable beds at OSH patient was placed in our hospital as observation. She will possibly be transferred to a higher level care. I did speak with her mother who wishes for her to go to [place] I explained to her mother that patient will need to go to any hospital that has an available bed. Patient's mother agreed but her family member will continue to work on [employer]. Patient is completely unresponsive an
--- NOTE | 2021-05-10 09:47 | PM.DS ---
DS: Admitting Diagnosis Discharge Date 05/09/21 Admitting Diagnosis ams, pna, cva DS: Discharge Diagnosis Discharge Diagnosis (1) CVA (cerebral vascular accident): Code(s): I63.9 - Cerebral infarction, unspecified Status: Acute Assessment and Plan: CT indicates Small bilateral frontoparietal lobe infarctions. Patient would need to transfer to a hospital with a higher level of care and consult with neurology (2) Pneumonia: Qualifiers: Laterality: bilateral Lung location: lower lobe of lung Pneumonia type: due to unspecified organism Qualified Code(s): J18.9 - Pneumonia, unspecified organism Code(s): J18.9 - Pneumonia, unspecified organism Status: Acute Assessment and Plan: Imaging indicates pneumonia WBCs and lactic acid within normal limits CRP elevated at 2.9 Continue Zosyn Blood culture pending (3) Acute alteration in mental status: Code(s): R41.82 - Altered mental status, unspecified Status: Acute Assessment and Plan: Possibly secondary to CVA versus infection versus [place] Will need to transfer for consult to neurology (4) NSTEMI (non-ST elevated myocardial infarction): Code(s): I21.4 - Non-ST elevation (NSTEMI) myocardial infarction Status: Acute Assessment and Plan: trop 189.5>172.1>166.8>158.4>185.9 EKG sinus tach heart rates in the 111 Patient will need to transfer and consult cardiology (5) Pulmonary hypertension: Code(s): I27.20 - Pulmonary hypertension, unspecified Status: Acute Assessment and Plan: Blood pressure 175/94 Will slowly lower blood pressure due to acute CVA Continue amlodipine once patient is no longer n.p.o. for now hydralazine with parameters Vital signs as Will adjust medication as needed (6) Anemia: Code(s): D64.9 - Anemia, unspecified Status: Acute Assessment and Plan: Hemoglobin 9.9 hematocrit 38.8 baseline appears to be at7.8/25.6 Received report that patient has dark stools Will trend Infuse for hemoglobin less than 6 Type and screen ordered Occult blood pending (7) Scleroderma: Code(s): M34.9 - Systemic sclerosis, unspecified Status: Acute (8) Ileus: Code(s): K56.7 - Ileus, unspecified Status: Acute Assessment and Plan: CT indicates Severely distended colon, cecum up to 9.7 cm. Favor colonic ileus over rectosigmoid obstruction. KUB pending Patient n.p.o. with NG tube to suction. Reglan order Patient will need to transfer to for surgical reconsult (9) Pleural effusion: Code(s): J90 - Pleural effusion, not elsewhere classified Status: Acute Assessment and Plan: Imaging indicated moderate right and small left pleural effusion Will need a thoracentesis when stable DS: Summary Hospital Course Hospital Course: this is a 56-year-old female that presented to emergency department with decreased level of consciousness. Patient has a past medical history of anemia, CVA, hypokalemia, NSTEMI, pulmonary hypertension and scleroderm. This patient was a ER hold due to unavailable beds at OSH patient was placed in our hospital as observation. She will possibly be transferred to a higher level care. I did speak with her mother who wishes for her to go to [employer] I explained to her mother that patient will need to go to any hospital that has an available bed. Patient's mother agreed but her family member will continue to work on [place]. Patient is completely unresponsive and appears to be groaning due to pain. Patient be transferred to [facility] on Time Spent with Patient Time attestation: Total time spent providing and/or coordinating discharge services: Exam Narrative: GENERAL: Patient is unable to follow commands patient appears to be grimacing due to pain HEAD: normocephalic, atraumatic. EYES: PERRL. Sclera clear/white. Vision is grossly intact. EARS: External ea
== END 2021-05-09 22:30 | disposition short-term general hospital (02) ==
LOC: CHSED 05-09 07:39 → CHS2ND 05-09 11:21
PROVIDERS: Emergency Medicine; Admitting Provider Emergency Medicine; Emergency Provider Emergency Medicine; PCP Family Medicine; Visit Provider Emergency Medicine
DX: I63.9 Cerebral infarction, unspecified (principal); I21.4 Non-ST elevation (NSTEMI) myocardial infarction; J18.9 Pneumonia, unspecified organism; K56.7 Ileus, unspecified; I27.20 Pulmonary hypertension, unspecified; D64.9 Anemia, unspecified; J90 Pleural effusion, not elsewhere classified; I25.2 Old myocardial infarction; M34.9 Systemic sclerosis, unspecified; Z20.822 Contact with and (suspected) exposure to COVID-19; Z86.73 Personal history of transient ischemic attack (TIA), and cerebral infarction without residual deficits; Z79.899 Other long term (current) drug therapy
CPT/HCPCS: 36415; 36600; 70450; 71045; 74176; 80048; 80053; 80307; 81003; 82375; 82805; 83050; 83605; 83690; 83735; 84443; 84484; 85025; 85055; 85610; 85730; 86140; 86850; 86900; 86901; 87040; 87086; 87502; 93005; 94640; 96361; 96365; 96366; 96375; 96376; 99285; A9270; C9113; C9803; G0378; J1170; J2270; J2310; J2405; J2543; J2765; J2920; J7030; J7040; J7042; U0003; U0005